=== PATIENT | male | born 1985 | race Caucasian/White ===

== ENCOUNTER → 2021-11-24 09:58 | Outpatient (CLI) | payer OTHER, SELFPAY ==
[2021-11-25 15:24] LABS: Covid-19 Nasal PCR Sendout Lex POSITIVE
== END ==
PROVIDERS: Visit Provider Nurse Practitioner
DX: U07.1 COVID-19 (principal)
CPT/HCPCS: C9803; U0004; U0005

== ENCOUNTER 2022-10-09 12:01 | Emergency (ER) | payer SELFPAY ==
--- NOTE | 2022-10-09 12:25 | EXP.UTC ---
Discharge Plan Disposition Patient Disposition: Home, Self-Care Condition: Good Prescriptions Prescriptions: New azithromycin [azithromycin] 250 mg tablet 250 mg PO DIRECTED Qty: 6 0RF Rx Instructions: Take two (2) tablets on day #1, then one (1) tablet day #2 thru #5 Referrals Follow up/Referrals: Provider,Referral, MD [Primary Care Provider] - See instructions Activity Restrictions/Add. Instructions Additional Instructions/Restrictions: Start antibiotics today be sure to take it as ordered with the full length of time although you should start feeling better in 24-48 hours. Change toothbrush and toothpaste 24-48 hours after starting antibiotics Tylenol or Motrin as needed for fever or pain Encourage fluids, water, Gatorade, Powerade, try cold fluids, popsicles, ice cream will make it feel better You are contagious for 24 hours. Avoid kissing anyone, no eating or drinking after anyone. You are contagious. Follow-up the ER for new or worsening symptoms or no noticeable improvement over the next 24-48 hours. Follow-up with PCP this week. Clinical Impressions Clinical Impression: Strep sore throat Instructions Patient Instructions: DI for Strep Throat [facility] [facility] [place] General Stated complaint: Sore throat, loss of voice, cough, SOA Mode of Arrival: Ambulatory Source of Information: Patient Limitations: No Limitations Time Seen by Provider: 10/09/22 12:26 HEENT Symptoms (Recalled from RN notes): Yes History of Present Illness Provider Complaint: 37 yr old male presents for sore throat and hoarseness since last Related Data Previous Rx's Medication Instructions Recorded azithromycin 250 mg tablet 250 mg PO DIRECTED #6 tabs 10/09/22 Allergies Allergy/AdvReac Type Severity Reaction Status Date / Time Penicillins [PENICILLINS] Allergy Unknown Verified 10/09/22 12:31 [facility] Disclaimer: The information contained in this section may have been updated after the patient was seen, as this information can be updated by other users. Social History , PLATINUMSMITH) Smoking Status: Smoker, status unknown alcohol intake: never current occupational status: employed Travel in the last 8 weeks: None ROS Obtained: Yes All systems reviewed & no additional complaints except as documented Constitutional Constitutional: Reports system reviewed and no additional complaints, except as documented and Reports as per HPI Eyes Eyes: Reports system reviewed and no additional complaints, except as documented ENT Ears, Nose, Mouth, and Throat: Reports system reviewed and no additional complaints, except as documented, Reports as per HPI, Reports hoarseness and Reports sore throat Cardiovascular Cardiovascular: Reports system reviewed and no additional complaints, except as documented and Reports as per HPI Respiratory Respiratory: Reports system reviewed and no additional complaints, except as documented Neurologic Neurologic: Reports system reviewed and no additional complaints, except as documented Endocrine Endocrine: Reports system reviewed and no additional complaints, except as documented Physical Exam General General appearance: alert and in no apparent distress Head Head exam: atraumatic, normocephalic and normal inspection Eye Eye exam: Present normal appearance and PERRL ENT ENT exam: Present mucous membranes moist, TM's normal bilaterally and normal external ear exam Expanded ENT Exam Throat exam: Present tonsillar erythema, tonsillomegaly and tonsillar exudate Neck Neck exam: Present normal inspection, full ROM and trachea midline; Absent meningismus or lymphadenopathy Respiratory Respiratory exam: Present normal lung sounds bilaterally; Absent respiratory distress Cardiovascular Cardiovascular exam: Present regular rate and normal rhythm; Absent JVD Extremities Exam Extremities exam: Present no
[2022-10-09 12:28] LABS: UTC Strep Screen (Rapid) Positive (Negative)
[2022-10-09 12:29] VITALS: BP 149/87; PULSE 85; RESP 16; TEMP 37.1; O2SAT 97; BMI 30.5
[2022-10-09 12:34] VITALS: BP 149/87; PULSE 85; RESP 16; TEMP 37.1
== END 2022-10-09 12:36 | disposition home or self-care (01) ==
PROVIDERS: Emergency Provider Nurse Practitioner Family
DX: J02.0 Streptococcal pharyngitis (principal)
CPT/HCPCS: 87880; 99212; G0463

== ENCOUNTER 2022-10-17 14:54 | Emergency (ER) | payer SELFPAY ==
[2022-10-17 15:09] VITALS: BP 156/74; PULSE 88; RESP 16; TEMP 36.7; O2SAT 95; BMI 32.4
--- NOTE | 2022-10-17 15:13 | EXP.UTC ---
Discharge Plan Disposition Patient Disposition: Home, Self-Care Prescriptions Prescriptions: New benzonatate [benzonatate] 100 mg capsule 100 mg PO TIDP PRN (Reason: Cough) Qty: 30 0RF methylprednisolone 4 mg Tablets,Dose Pack 4 mg PO DIRECTED Qty: 21 0RF cefdinir 300 mg capsule 300 mg PO BID Qty: 20 0RF Discontinued azithromycin [azithromycin] 250 mg tablet 250 mg PO DIRECTED Qty: 6 0RF Rx Instructions: Take two (2) tablets on day #1, then one (1) tablet day #2 thru #5 Referrals Follow up/Referrals: Provider,Referral, MD [Primary Care Provider] - See instructions Activity Restrictions/Add. Instructions Additional Instructions/Restrictions: Drink plenty of fluids. Take tylenol or ibuprofen for pain or fever. Take the medications as directed. Follow up with your regular doctor. GO TO THE ER FOR ANY WORSENING SYMPTOMS Throw your tooth brush away and get a new one. Clinical Impressions Clinical Impression: Strep sore throat Stand Alone Forms Stand Alone Forms: Work/School Release Instructions Patient Instructions: Strep Throat, DI for Strep Throat Discharge ED Provider: Pierce Cortes [facility] General Stated complaint: Sore throat, cough Time Seen by Provider: 10/17/22 14:58 Description of Symptoms (Recalled from Triage Doc. by RN): pt seen 10/09 for sore throat, cough. pt states he took medication but has not improved. HEENT Symptoms (Recalled from RN notes): Yes Resp Symptoms (Recalled from RN notes): Yes Skin Symptoms (Recalled from RN notes): No MS Symptoms (Recalled from RN notes): No Functional Status (Recalled from RN notes): n/a History of Present Illness Provider Complaint: He is back with continued complaints of sore throat. He was treated for strep throat about 2 weeks ago with a z-pack. He states that he did not get completely better, then once he finished the meds all his symptoms returned. Related Data Previous Rx's Medication Instructions Recorded benzonatate 100 mg capsule 100 mg PO TIDP PRN Cough #30 caps 10/17/22 cefdinir 300 mg capsule 300 mg PO BID #20 caps 10/17/22 methylprednisolone 4 mg tablets in 4 mg PO DIRECTED #21 tabs 10/17/22 a dose pack Allergies Allergy/AdvReac Type Severity Reaction Status Date / Time Penicillins [PENICILLINS] Allergy Unknown Verified 10/17/22 15:11 Worker's Comp Is this a Worker's Comp case?: No [facility] Disclaimer: The information contained in this section may have been updated after the patient was seen, as this information can be updated by other users. Social History Smoking Status: Smoker, status unknown alcohol intake: never current occupational status: employed Travel in the last 8 weeks: None ROS Obtained: Yes All systems reviewed & no additional complaints except as documented Constitutional Constitutional: Reports chills and Reports fever(s) Eyes Eyes: Denies eye discharge ENT Ears, Nose, Mouth, and Throat: Reports as per HPI Cardiovascular Cardiovascular: Denies chest pain Respiratory Respiratory: Denies chest congestion and Reports cough Gastrointestinal Gastrointestingal: Reports nausea; Denies abdominal pain, constipation, cramping, diarrhea or vomiting Musculoskeletal Musculoskeletal: Denies arthralgias Integumentary/Breasts Skin/Breast: Denies rash Neurologic Neurologic: Denies paresthesias Physical Exam General General appearance: alert and in no apparent distress Head Head exam: atraumatic, normocephalic and normal inspection Eye Eye exam: Present normal appearance, PERRL and EOMI ENT ENT exam: Present mucous membranes moist and normal external ear exam Expanded ENT Exam TM/Canal exam: Bilateral TM: erythema and bulging Nose exam: Absent sinus tenderness Mouth exam: Present normal external inspection; Absent drooling Teeth exam: Present normal inspection Throat exam: Present tonsillar erythema,
[2022-10-17 15:22] LABS: UTC Strep Screen (Rapid) Negative (Negative)
[2022-10-17 15:55] VITALS: BP 156/74; PULSE 88; RESP 16; TEMP 36.7
== END 2022-10-17 16:01 | disposition home or self-care (01) ==
PROVIDERS: Emergency Provider Nurse Practitioner Family
DX: J02.0 Streptococcal pharyngitis (principal)
CPT/HCPCS: 87880; 99212; G0463

== ENCOUNTER 2024-05-22 14:53 | Emergency (ER) | payer SELFPAY ==
[2024-05-22 14:55] VITALS: BP 150/98; PULSE 94; RESP 16; TEMP 37.1; O2SAT 97; BMI 31.3
--- NOTE | 2024-05-22 15:18 | CT_ITS ---
FINAL REPORT TECHNIQUE: Thin section axial CT with sagittal reconstruction without contrast This study was performed with techniques to keep radiation doses as low as reasonably achievable, (ALARA). Individualized dose reduction techniques using automated exposure control or adjustment of mA and/or kV according to the patient''s size were employed. CLINICAL HISTORY: neck pain, L arm numb/tingling FINDINGS: No acute fracture is identified. There is reversal of the normal lordosis. There is significant degenerative canal stenosis at C6-7. There is mild canal stenosis and moderate left neural foraminal narrowing at C5-6. IMPRESSION: Degenerative canal stenosis and neural foraminal narrowing in the lower cervical spine. MR follow-up may be considered. Reviewed, Interpreted and Dictated by Lina Perez MD Transcribed by Milady King Authenticated and [facility]
--- NOTE | 2024-05-22 15:18 | CT_ITS ---
FINAL REPORT CLINICAL HISTORY: neck pain, L arm numb/tingling FINDINGS: CT NECK ANGIO, WITHOUT AND WITH CONTRAST TECHNIQUE: Thin section axial CT with contrast with multiplanar 3D MIP reconstruction. NASCET criteria and technique was utilized during interpretation. Aortic arch: Arch shows no significant narrowing. Great vessel origins are widely patent. Right carotid: No significant stenosis is seen of the cervical common or internal carotid artery. Left carotid: No significant stenosis is seen of the cervical common or internal carotid artery. Vertebrals: Left vertebral artery is dominant. No significant stenosis is present. IMPRESSION: No significant stenosis of the cervical carotid arteries This study was performed using automated techniques to achieve radiation exposure as low as reasonably Reviewed, Interpreted and Dictated by Lina Perez MD Transcribed by Milady King Authenticated and [facility]
--- NOTE | 2024-05-22 15:18 | CT_ITS ---
FINAL REPORT CLINICAL HISTORY: neck pain, L arm numb/tingling FINDINGS: CTA HEAD TECHNIQUE: Thin section axial CT with contrast with 3D MIP reconstruction No aneurysm is seen. Major intracranial vessels are patent without significant stenosis. . IMPRESSION: Unremarkable This study was performed using automated techniques to achieve radiation exposure as low as reasonably achievable Reviewed, Interpreted and Dictated by Lina Perez MD Transcribed by Milady King Authenticated and [facility]
--- NOTE | 2024-05-22 15:18 | CT_ITS ---
FINAL REPORT TECHNIQUE: Noncontrast exam This study was performed with techniques to keep radiation doses as low as reasonably achievable, (ALARA). Individualized dose reduction techniques using automated exposure control or adjustment of mA and/or kV according to the patient''s size were employed. CLINICAL HISTORY: neck pain, L arm numb/tingling FINDINGS: No abnormal density is seen. Ventricles are normal. There is no hemorrhage. No mass effect is seen. Bone windows show no evidence of fracture. IMPRESSION: No acute findings. Reviewed, Interpreted and Dictated by Lina Perez MD Transcribed by Milady King Authenticated and [facility]
[2024-05-22] MEDS: METHOCARBAMOL 500MG TABLET 500 MG PO (15:27)
[2024-05-22] MEDS: KETOROLAC 30MG/ML VIAL 15 MG IV (15:27)
--- NOTE | 2024-05-22 15:31 | ED_ITS ---
Discharge Plan Disposition Patient Disposition: Home, Self-Care Condition: Good Prescriptions Prescriptions: New naproxen 500 mg tablet 500 mg PO BID Qty: 20 0RF methocarbamol 750 mg tablet 750 mg PO Q8H PRN (Reason: pain) Qty: 20 0RF No Action benzonatate [benzonatate] 100 mg capsule 100 mg PO TIDP PRN (Reason: Cough) Qty: 30 0RF methylprednisolone 4 mg Tablets,Dose Pack 4 mg PO DIRECTED Qty: 21 0RF cefdinir 300 mg capsule 300 mg PO BID Qty: 20 0RF Referrals Follow up/Referrals: Provider,Referral, [Primary Care Provider] - See instructions Activity Restrictions/Add. Instructions Additional Instructions/Restrictions: You were evaluated in the emergency department today. Please nut picker your prescriptions and take as prescribed to help reduce inflammation. Follow-up closely with your primary care provider for reassessment. They may refer you to a ammunition specialist for further evaluation and management at their discretion. Return to the emergency department for new or worsening symptoms. Clinical Impressions Clinical Impression: Neural foraminal stenosis of cervical spine, Cervical radiculopathy Stand Alone Forms Stand Alone Forms: Work/School Release Instructions Patient Instructions: DI for Cervical Radiculopathy Print Language Print Language: Mohawk Discharge ED Provider: Beth Graham General Adult HPI General Chief complaint: Neuro Symptoms/Deficit Stated complaint: tingling in L arm and back L neck and head Time Seen by Provider: 05/22/24 15:03 Mode of Arrival: Ambulatory Source of Information: Patient Limitations: No Limitations Description of Symptoms (Recalled from ER Triage Doc. by RN): pt to the ED with left arm pain with numbness since last night. pt denies any sensory deficits with palpitation but reports his arm feels like pins and needles from his fingers to neck into his head. pt works on [employer] for a living and did some minor lifting yesterday but didnt note any injury. pt denies any other deficits at this time. History of Present Illness HPI narrative: This patient is a 39-year-old male who denies significant past medical history presenting to the emergency department for evaluation with concern for numbness and tingling in his left arm. He states that he feels a pins and needle sensation in the left arm. He also notes that it goes up into his neck, and he feels some tightness in the left side of his neck. He notes that he had issues with his neck and upper back in the past seems to be associated with lifting things at work. He cannot think of any specific injuries or other issues yesterday, but the symptoms started last night. No headache, vision changes, weakness, gait instability, or other concern. Related Data Previous Rx's ?Medication ?Instructions ?Recorded benzonatate 100 mg capsule 100 mg PO TIDP PRN Cough #30 caps 10/17/22 cefdinir 300 mg capsule 300 mg PO BID #20 caps 10/17/22 methylprednisolone 4 mg tablets in 4 mg PO DIRECTED #21 tabs 10/17/22 a dose pack methocarbamol 750 mg tablet 750 mg PO Q8H PRN pain #20 tabs 05/22/24 naproxen 500 mg tablet 500 mg PO BID #20 tabs 05/22/24 Allergies Allergy/AdvReac Type Severity Reaction Status Date / Time Penicillins [PENICILLINS] Allergy Unknown Verified 10/17/22 15:11 [facility] Disclaimer: The information contained in this section may have been updated after the patient was seen, as this information can be updated by other users. Social History Smoking Status: Current every day smoker alcohol intake: never current occupational status: employed Travel in the last 8 weeks: None ROS Obtained: Yes All systems reviewed & no additional complaints except as documented Physical Exam General General appearance: alert and in no apparent distress Head Head exam: atraumatic and normocephalic Eye Eye exam: Present normal appearance, PERRL and EOMI ENT ENT exam: Present normal exam, normal oropharynx, mucous membranes moist and normal external ear exam Neck Neck exam: Present normal inspection, full ROM and trachea midline; Absent tenderness Chest Chest inspection: Present normal inspection and symmetric chest wall rise; Absent tenderness Respiratory Respiratory exam: Present normal lung sounds bilaterally; Absent respiratory distress, wheezes, stridor or accessory muscle use Cardiovascular Cardiovascular exam: Present regular rate and normal rhythm Abdominal Exam Abdominal exam: Present soft; Absent distention, tenderness or guarding Extremities Exam Extremities exam: Present normal inspection, full ROM and normal capillary refill; Absent tenderness or edema Back Exam Back exam: Present full ROM, muscle spasm (L neck/L upper trap) and paraspinal tenderness (L neck); Absent vertebral tenderness Neurological Exam Neurological exam: Present alert, oriented X3, CN II-XII intact and normal gait; Absent motor sensory deficit Psychiatric Psychiatric exam: Present normal affect and normal mood Skin Skin exam: Present warm and dry Medical Decision Making Medical Records Medical records reviewed: Yes I reviewed the patient's medical records. Nishant Inquiry Pt receiving controlled substance: No Vital Signs: 05/22/24 14:55 05/22/24 16:00 05/22/24 16:30 Temperature 98.7 F Temperature Source Oral Pulse Rate 72 76 Pulse Rate [Left Radial] 94 H Respiratory Rate 16 Blood Pressure 121/78 135/92 H Blood Pressure [Right Arm] 150/98 H Blood Pressure Mean [Right Arm] 115 Blood Pressure Source [Right Arm] Automatic Cuff Blood Pressure Position [Right Arm] Sitting 02 Sat by Pulse Oximetry 97 96 94 L Oxygen Delivery Method Room Air Oxygen Flow Rate (LPM) 05/22/24 16:53 Temperature 97.6 F Temperature Source Pulse Rate 74 Pulse Rate [Left Radial] Respiratory Rate 16 Blood Pressure 135/92 H Blood Pressure [Right Arm] Blood Pressure Mean [Right Arm] Blood Pressure Source [Right Arm] Blood Pressure Position [Right Arm] 02 Sat by Pulse Oximetry Oxygen Delivery Method Oxygen Flow Rate (LPM) 94 Lab Data Lab results reviewed: Yes I reviewed the patient's lab results. Lab Results 05/22/24 15:15: WBC 10.9 H, RBC 4.82, Hgb 16.7, Hct 47.2, MCV 97.9 H, MCH 34.8 H , MCHC 35.5 H, RDW 13.9, Plt Count 225, MPV 7.7, Neut % (Auto) 69.5, Lymph % (Auto) 19.4, [place] % (Auto) 6.3, Eos % (Auto) 3.7, Baso % (Auto) 1.1, Neut # (Auto) 7.6, Lymph # (Auto) 2.1, [place] # (Auto) 0.7, Eos # (Auto) 0.4, Baso # (Auto) 0.1, Sodium 143, Potassium 3.6, Chloride 112 H, Carbon Dioxide 26, Anion Gap 8.6, BUN 14, Creatinine 0.70, Estimated Creat Clear 182, Estimated GFR 126, Est GFR ( Amer) 152, Glucose 110 H, Calcium 9.2, Magnesium 2.0, Total Bilirubin 0.6, AST 43, ALT 38, Alkaline Phosphatase 69, Troponin I < 0.01, Total Protein 6.9, Albumin 4.4, Globulin 2.5, Albumin/Globulin Ratio 1.8 05/22/24 15:15 05/22/24 15:15 Orders (Tests/Meds): ED MEDICATIONS Discontinued Medications Generic Name Dose Route Start Last Admin Trade Name Zaneq PRN Reason Stop Dose Admin Iopamidol 100 ml 05/22/24 15:36 05/22/24 15:37 Iopamidol-370 (76%);100ml Bottle IV 05/22/24 15:37 100 ml ONCE ONE Administration Ketorolac Tromethamine 15 mg 05/22/24 15:19 05/22/24 15:27 Ketorolac 30mg/Ml Vial IV 05/22/24 15:20 15 mg ONCE ONE Administration Methocarbamol 500 mg 05/22/24 15:20 05/22/24 15:27 Methocarbamol 500mg Tablet PO 05/22/24 15:21 500 mg ONCE ONE Administration Sodium Chloride 10 ml 05/22/24 15:18 Sodium Chloride 0.9% 10ml Flush Syringe IV 06/21/24 15:17 NEEDED PRN Maintain IV Site Sodium Chloride 10 ml 05/22/24 15:36 Sodium Chloride 0.9% 10ml Syr (Rad Only) IV 06/21/24 15:35 NEEDED PRN Maintain IV Site Sodium Chloride 50 ml 05/22/24 15:36 05/22/24 15:37 0.9 % Sodium Chloride 50 Ml Vial IV 05/22/24 15:37 50 ml ONCE ONE Administration ORDERS Category Date Time Status CT angio head Stat Cat Scan 05/22/24 15:[address] angio neck Stat Cat Scan 05/22/24 15:[address] cervical spine wo con Stat Cat Scan 05/22/24 15:[address] head/brain wo con Stat Cat Scan 05/22/24 15:18 Completed Complete Blood Count Auto Diff Stat Lab 05/22/24 15:15 Completed Comprehensive Metabolic Panel Stat Lab 05/22/24 15:15 Completed MAG [Magnesium] Stat Lab 05/22/24 15:15 Completed Trop I [Troponin I] Stat Lab 05/22/24 15:15 Completed ECG Data Tracing #1: I reviewed this ECG and interpreted as documented below: Normal sinus rhythm with a ventricular rate of 72 bpm. Sinus arrhythmia. No acute ST changes concerning for ischemia at this time. Normal axis and intervals. ECG initial impression date: 05/22/24 ECG initial impression time: 15:50 Medical Decision Narrative: In summary, this patient is a 39-year-old male presenting to the Emergency Department for evaluation of pins and needle sensation in his left arm as well as some tightness in his neck. Differential diagnoses considered include but are not limited to cervical radiculopathy, thoracic radiculopathy, brachial plexus injury, CVA. Ruling out the most morbid conditions drove assessment. On exam, the patient is very well-appearing. He actually has an NIH stroke scale of 0 with intact motor function and no sensory deficits. I suspect that this is most likely coming from his neck and he likely has cervical radiculopathy based on exam and history, as patient has no risk factor for stroke and no true neurologic deficits. He does have tenderness of his paraspinal muscles on the left neck as well as hypertonicity of his upper trap and left neck muscles, which again would favor musculoskeletal cause of pain. Workup included CBC, CMP, CT head, CT C-spine, and CT angiogram head and neck to rule out acutely concerning abnormality. He was given IV Toradol and oral Robaxin for symptomatic improvement. I independently interpreted CT scans prior to the radiologist read and noted no obvious intracranial hemorrhage or large area of acute stroke. Please see their read for final interpretation. Labs were obtained that demonstrated no acutely concerning abnormalities. Radiology notes degenerative changes in cervical spine with neural foraminal stenosis, which I feel is likely the cause of the patient's symptoms. On reassessment, the patient is resting comfortably and remains neurologically intact with only complaints of pins and needle sensation in his left upper extremity at this time. I feel he likely has cervical radiculopathy. I feel he is appropriate for discharge home with prescriptions for anti-inflammatory and muscle relaxer to try and treat his symptoms. Advised that he follow-up very closely with his primary care provider for reassessment. He was given strict return precautions and instructions for close follow-up. Patient was discharged after all questions were answered. Critical Care Critical Care Time Critical Care Time: No
[2024-05-22 15:32] LABS: Albumin Level 4.4 g/dl (3.5-5.0); Basophils # 0.1 K/mm3 (0-0.2); Basophils % 1.1 % (0.1-2.0); Chloride 112 mmol/L (98-107); Eosinophils # 0.4 K/mm3 (0.0-0.4); Eosinophils % 3.7 % (0.1-12.0); Hematocrit 47.2 % (42.0-52.0); Hemoglobin 16.7 g/dL (14.1-18.0); Lymphocytes # 2.1 K/mm3 (0.7-4.5); Lymphocytes % 19.4 % (10-50); Mean Corpuscular HGB Conc 35.5 g/dL (31.8-35.4); Mean Corpuscular Hemoglobin 34.8 pg (27.0-31.2); Mean Corpuscular Volume 97.9 fl (80-94); Mean Platelet Volume 7.7 fl (7.4-10.4); Monocytes # 0.7 K/mm3 (0.1-1.0); Monocytes % 6.3 % (1.7-9.3); Neutrophils # 7.6 K/mm3 (1.8-7.8); Neutrophils % 69.5 % (37.0-80.0); Platelet Count 225 K/mm3 (142-424); Red Blood Count 4.82 M/mm3 (4.60-6.20); Red Cell Distribution Width 13.9 % (11.5-17.5); Sodium 143 mmol/L (136-145); White Blood Count 10.9 K/mm3 (4.8-10.8)
[2024-05-22 15:33] LABS: Potassium 3.6 mmoL/L (3.5-5.1)
[2024-05-22 15:35] LABS: Alanine Aminotransferase 38 U/L (12-78); Albumin/Globulin Ratio 1.8 (1.1-1.8); Anion Gap 8.6 mEq/L (5-15); Aspartate Amino Transferase 43 U/L (17-59); Blood Urea Nitrogen 14 mg/dl (9-20); Carbon Dioxide 26 mmol/L (22.0-30.0); Creatinine Clearance Estimated 182 mL/min (50-200); Estimated Glomerular Filt Rate 126 ml/min (>60); GFR (African American) 152 ML/MIN (>60); Globulin 2.5 g/dL (1.3-3.2); Total Protein,Serum 6.9 g/dl (6.3-8.2)
[2024-05-22 15:36] LABS: Alkaline Phosphatase 69 U/L (38-126); Bilirubin,Total 0.6 mg/dl (0.2-1.3); Calcium 9.2 mg/dl (8.4-10.2); Glucose 110 mg/dl (74-100)
[2024-05-22] MEDS: IOPAMIDOL-370 (76%);100ML BOTTLE 100 ML IV (15:37)
[2024-05-22] MEDS: 0.9 % SODIUM CHLORIDE 50 ML VIAL IV (15:37)
--- NOTE | 2024-05-22 15:49 | ECG_ITS ---
APPROVED REPORT Exam: Resting ECG HR:72 bpm ECG Measurements Heart Rate 72 AXES MN 152 P 42 QRSd 110 QRS 70 QT 386 T 37 QTc 410 Conclusion SINUS RHYTHM WITH SINUS ARRHYTHMIA SEPTAL MYOCARDIAL INFARCTION , OF INDETERMINATE AGE [40+ ms Q WAVE IN V1/V2] ABNORMAL ECG Electronically signed by : MAXIMILIANO MCKEON, 05/22/2024 23:50:35
[2024-05-22 16:00] VITALS: BP 121/78; PULSE 72; O2SAT 96
[2024-05-22 16:17] LABS: Troponin I < 0.01 ng/ml (0.00-0.034)
[2024-05-22 16:30] VITALS: BP 135/92; PULSE 76; O2SAT 94
[2024-05-22 16:53] VITALS: BP 135/92; PULSE 74; RESP 16; TEMP 36.4
== END 2024-05-22 16:53 | disposition home or self-care (01) ==
PROVIDERS: Emergency Provider Emergency Medicine
DX: M48.02 Spinal stenosis, cervical region (principal); M54.12 Radiculopathy, cervical region; R20.2 Paresthesia of skin; I49.9 Cardiac arrhythmia, unspecified; F17.210 Nicotine dependence, cigarettes, uncomplicated
CPT/HCPCS: 70450; 70496; 70498; 72125; 80053; 83735; 84484; 85025; 93005; 96374; 99285; J1885; Q9967

== ENCOUNTER 2025-07-10 13:49 | Emergency (ER) | payer SELFPAY ==
[2025-07-10] VITALS (7 sets, daily range): BP systolic 135–147; BP diastolic 88–104; PULSE 65–82; RESP 16–18; TEMP 36.7–37.2; O2SAT 95–99; BMI 31.9
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
[2025-07-10] MEDS: KETOROLAC 15MG/ML VIAL 15 MG IM (15:04)
== END 2025-07-10 17:17 | disposition home or self-care (01) ==
PROVIDERS: Emergency Provider Student in an Organized Health Care Education/Training Program
DX: S49.91XA Unspecified injury of right shoulder and upper arm, initial encounter (principal); M25.511 Pain in right shoulder; F17.200 Nicotine dependence, unspecified, uncomplicated; V86.55XA Driver of 3- or 4- wheeled all-terrain vehicle (ATV) injured in nontraffic accident, initial encounter
CPT/HCPCS: 73030; 96372; 96374; 99284; 99285; J1885